=== PATIENT | female | born 1980 ===

== ENCOUNTER → 2022-07-21 09:01 | Outpatient (CLI) | payer OTHER, SELFPAY ==
--- NOTE | ~2022-07-21 | US_ITS ---
Limited Abdominal Sonogram: Real-time sonographic imaging of the right upper quadrant was performed. Clinical History: Right upper quadrant pain Findings: The liver appears normal with no evidence of mass lesion or bile duct dilatation. Main por daniela vein demonstrates normal direction of flow. The gallbladder is well distended, with probable 4 mm gallbladder wall polyp.. The common bile duct measures 2 mm. The visualized pancreas, aorta, and IV C are unremarkable. Right kidney measures 10.1 cm in length, without evidence of hydronephrosis. Impression: Probable 4 mm gallbladder wall polyp. Reviewed, dictated and finalized at location M. CALL PHARMACY TECHNICIAN Impression: Probable 4 mm gallbladder wall polyp.
== END ==
PROVIDERS: PCP Family Medicine; Visit Provider Family Medicine
DX: R10.11 Right upper quadrant pain (principal)
CPT/HCPCS: 76705